=== PATIENT | female | born 1955 | race Caucasian/White ===

== ENCOUNTER → 2021-02-18 | Emergency (ER) | payer BC, OTHER ==
[~2021-02-18] VITALS: Ht 162.6 cm; Wt 89.1 kg
[2021-02-18 17:36] VITALS: BP 136/88; PULSE 107; TEMP 97.7
== END ==
LOC: COL.ER 17:26
DX: I51.9 Heart disease, unspecified (principal); Z88.1 Allergy status to other antibiotic agents; Z88.5 Allergy status to narcotic agent